=== PATIENT | female | born 1965 | race Caucasian/White ===

== ENCOUNTER 2020-05-11 12:25 | Emergency (ER) | payer OTHER ==
[~2020-05-11] VITALS: Ht 180.3 cm; Wt 81.7 kg
[2020-05-11] MEDS ORDERED: NEURONTIN300 MG PO (12:40)
[2020-05-11] MEDS ORDERED: CYCLOBENZAPRINE10 MG PO (12:41)
[2020-05-11] MEDS ORDERED: TIROSINT125 MCG PO (12:41)
[2020-05-11] MEDS ORDERED: DICLOFENAC SODI75 MG PO (12:41)
[2020-05-11] MEDS ORDERED: CYMBALTA30 MG PO (12:42)
[2020-05-11] MEDS ORDERED: PRAZOSIN HCL1 GM MC (12:42)
[2020-05-11] MEDS ORDERED: NORCO 7.5-3251 EACH PO (12:43)
[2020-05-11] MEDS ORDERED: MIGRANOW KIT50 MG MC (12:43)
[2020-05-11] MEDS ORDERED: COMBIPATCH 0.01 EAC1 TD (12:44)
[2020-05-11] MEDS ORDERED: IMODIUM A-D2 M2 (12:44)
[2020-05-11] MEDS ORDERED: PREDNISONE20 MG PO (14:37)
[2020-05-11] MEDS ORDERED: ZITHROMAX250 MG PO (14:37)
[2020-05-11] MEDS ORDERED: VENTOLIN HFA18 GM INH (14:40)
--- OUTSIDE RECORDS SUMMARY | 2020-05-11 15:06 | XMS ---
PreManage Notification: DM GOLDEN Security Cuff Folder Events No recent Security Events currently on file CRITERIA MET - PDMP CARE PROVIDERS SHAMIKA VIZCAINO Current PHONE: [phone] SHIRA PINTO Psychiatry \T\ Neurology: Psychiatry Current PHONE: Unknown MERLINE VELÁZQUEZ Physician [place] Current PHONE: Unknown Josee has no Care Guidelines for this patient. E.D. VISIT COUNT (12 MO.) 1 POOL [place] TOTAL 1 NOTE: Visits indicate total known visits. ED/UCC VISIT TRACKING (12 MO.) 05/11/2020 12:26 POOL [facility] [place] TYPE: Emergency COMPLAINT: - COUGH, FEVER, SOB INPATIENT VISIT TRACKING (12 MO.) No inpatient visits to display in this time frame [email or web address]
--- NOTE | 2020-05-13 16:16 | PATH ---
[facility] [address] [facility] [place], [place] [address] Signed ORDERING PHYSICIAN: Dario Teixeira MD PATIENT NAME: DM GOLDEN GENDER: F : 1965 SPECIMEN(S): MOLECULAR PATHOLOGY RESULTS: SARS-CoV-2 Not Detected ADDITIONAL NOTES.: The [employer] Fusion SARS-CoV-2 Assay is a multiplex real-time PCR (RT-PCR) in vitro diagnostic test intended for the qualitative detection of RNA from SARS-CoV-2 from individuals who meet COVID-19 clinical and/or epidemiological criteria. In general, SARS-CoV-2 RNA can be detected during the acute phase of infection. Positive results indicate the presence of SARS-CoV-2 RNA. Clinical correlation with patient history and other diagnostic information is necessary to determine patient infection status. Positive results do not rule out bacterial infection or co-infection with other viruses. Negative results do not preclude SARS-CoV-2 infection and should not be used as the sole basis for patient management decisions. Negative results must be combined with other clinical observations, patient history, and epidemiological information. The [employer] Fusion SARS-CoV-2 Assay is not yet approved or cleared by the [place] FDA. When there are no FDA-approved or cleared tests available, and other criteria are met, FDA can make tests available under an emergency access mechanism called an Emergency Use Authorization (EUA). The EUA for this test is supported by the [place] of Health and Human Service's (HHS's) declaration that circumstances exist to justify the emergency use of in vitro diagnostics for the detection and/or diagnosis of the virus that causes COVID-19. This EUA will remain in effect for the duration of the COVID-19 declaration justifying emergency of IVDs, unless it is terminated or revoked by FDA, after which the test may no longer be used. The [employer] Fusion SARS-CoV-2 Assay is for use only under EUA in US laboratories certified under the Clinical Laboratory Improvement Amendments of 1988 (CLIA) to perform high complexity tests. [facility] is certified under CLIA to perform high complexity PATIENT NAME: DM GOLDEN PATHOLOGY DATE OF : 67 REPORT #: [id number] PHYSICIAN: KRYSTYNA LOPEZ PCP: MERLINE VELÁZQUEZ REPORT IS CONFIDENTIAL AND NOT TO BE RELEASED WITHOUT AUTHORIZATION [address] [address] Signed clinical laboratory testing. PERFORMING LABORATORY.: Molecular testing was performed by [facility] [address] [place] [id number] (Etl Application Developer: Mj Felder D.O.; CLIA#: [id number]) Diagnostician: System Interface Pathologist Electronically Signed 05/13/2020 Copies: ~ PATIENT NAME: DM GOLDEN [facility] PATHOLOGY DATE OF : 67 REPORT #: [id number] PHYSICIAN: KRYSTYNA LOPEZ PCP: MERLINE VELÁZQUEZ REPORT IS CONFIDENTIAL AND NOT TO BE RELEASED WITHOUT AUTHORIZATION
== END 2020-05-11 15:02 | disposition home or self-care (01) ==
LOC: ED 12:25
DX: J20.9 Acute bronchitis, unspecified (principal); Z20.828 Contact with and (suspected) exposure to other viral communicable diseases; E03.9 Hypothyroidism, unspecified; Z87.891 Personal history of nicotine dependence; Z79.899 Other long term (current) drug therapy; Z88.8 Allergy status to other drugs, medicaments and biological substances
CPT/HCPCS: 71045; 94640; 94664; 99284-25; C9803; J7512